=== PATIENT | female | born 1945 | race African-American/Black ===

== ENCOUNTER 2022-09-20 20:55 | Inpatient (IN) | payer MEDICARE, OTHER ==
[~2022-09-20] VITALS: Ht 157.5 cm; Wt 62.6 kg
[2022-09-20] MEDS ORDERED: IBUP-1953 PO (22:31)
[2022-09-20] MEDS ORDERED: RISP0.5T5 PO (22:32)
[2022-09-20] MEDS ORDERED: TEMAZEPAM 7.5 MG CAPSULE PO PRN (23:00)
[2022-09-20] MEDS ORDERED: ACETAMINOPHEN 325 MG TABLET PO PRN (23:00)
[2022-09-20] MEDS ORDERED: MAGNESIUM HYDROXIDE 30 ML UDC PO PRN (23:00)
[2022-09-20] MEDS ORDERED: BLOOD SUGAR DIAGNOSTIC 1 EACH STRIP IN ONE (23:00)
[2022-09-20] MEDS ORDERED: MAG HYDROX/AL HYDROX/SIMETH 30 ML UDC PO PRN (23:00)
[2022-09-20] MEDS ORDERED: clonazePAM 0.5 MG TABLET PO PRN (23:00)
[2022-09-21] MEDS: MIRTAZAPINE 15 MG TABLET PO SCH (21:02)
[2022-09-22] MEDS ORDERED: CALC355O18 PO (13:06)
[2022-09-22] MEDS ORDERED: ACET-868 PO (13:06)
[2022-09-22] MEDS ORDERED: LACT20SO4 PO (13:06)
[2022-09-22] MEDS ORDERED: MAGN400O6 GT (13:06)
[2022-09-22] MEDS ORDERED: RISP0.5T5 PO (13:06)
[2022-09-22] MEDS: risperiDONE 1 MG TABLET PO SCH (17:00)
[2022-09-22 19:40] LABS: BASOPHILS % (AUTO) 0.5 % (0.0-2.0); EOSINOPHILS # (AUTO) 0.1 K/uL (0.0-0.7); EOSINOPHILS % (AUTO) 1.6 % (0.0-6.0); HEMATOCRIT 41 % (33-45); LYMPHOCYTES # (AUTO) 2.5 K/uL (0.8-4.8); LYMPHOCYTES % (AUTO) 36.8 % (20.0-44.0); MEAN CORPUSCULAR HEMOGLOBIN 32 PG (26.0-33.0); MEAN CORPUSCULAR HGB CONC 32 g/dl (31.0-36.0); MEAN CORPUSCULAR VOLUME 99 fL (82-100); MONOCYTES # (AUTO) 0.4 K/uL (0.1-1.30); MONOCYTES % (AUTO) 5.5 % (2.0-12.0); NEUTROPHILS # (AUTO) 3.8 K/uL (1.8-8.9); NEUTROPHILS % (AUTO) 55.6 % (43.0-81.0); PLATELET COUNT (AUTO) 344 K/uL (150-450); RED BLOOD CELL COUNT(AUTO) 4.14 MIL/uL (4.0-5.2); RED CELL DISTRIBUTION WIDTH 12.8 % (11.5-15.0); WHITE BLOOD COUNT (AUTO) 6.8 K/uL (4.3-11.0)
[2022-09-22 20:09] LABS: ALANINE AMINOTRANSFERASE 18 U/L (12-78); ALBUMIN 3.7 g/dL (3.4-5.0); ALKALINE PHOSPHATASE 53 U/L (46-116); ASPARTATE AMINOTRANSFERASE 13 U/L (15-37); BILIRUBIN,TOTAL 0.4 mg/dL (0.2-1.0); CALCIUM, SERUM 9.7 mg/dL (8.5-10.1); CARBON DIOXIDE 25 mmol/L (21-32); CHLORIDE 107 mmol/L (98-107); CREATININE 0.7 mg/dL (0.6-1.3); GLUCOSE 123 mg/dL (74-106); POTASSIUM 3.9 mmol/L (3.5-5.1); SODIUM SERUM 144 mmol/L (136-145); TOTAL PROTEIN, SERUM 7.8 g/dL (6.4-8.2); UREA NITROGEN, BLOOD 7 mg/dL (7-18)
[2022-09-22 20:12] LABS: HDL CHOLESTEROL 67 mg/dL (40-60); TRIGLYCERIDES 107 mg/dL (30-150)
[2022-09-22 20:22] LABS: CHOLESTEROL 243 mg/dL (<200); LDL 154 mg/dL (0-99)
[2022-09-22 20:27] LABS: THYROID STIMULATING HORMONE 0.514 uIU/mL (0.358-3.74)
[2022-09-22] MEDS: MIRTAZAPINE 15 MG TABLET PO SCH (21:31)
[2022-09-22 21:38] VITALS: BP 110/69; TEMP 98.2; O2SAT 95
[2022-09-23] MEDS: risperiDONE 1 MG TABLET PO SCH ×3 (08:13→17:00)
[2022-09-23 20:23] VITALS: BP 106/62; TEMP 97.6; O2SAT 97
[2022-09-23] MEDS: MIRTAZAPINE 15 MG TABLET PO SCH ×2 (21:43→21:47)
[2022-09-24] MEDS: risperiDONE 1 MG TABLET PO SCH ×2 (09:00→17:00)
[2022-09-24 16:00] VITALS: BP 143/78; TEMP 98.3; O2SAT 100
[2022-09-24] MEDS: MIRTAZAPINE 15 MG TABLET PO SCH (21:45)
[2022-09-25 08:00] VITALS: BP 157/68; TEMP 97.5; TEMP 97.6; O2SAT 95
[2022-09-25] MEDS: risperiDONE 1 MG TABLET PO SCH ×2 (09:00→09:47)
[2022-09-25 16:00] VITALS: BP 134/76; TEMP 97.6; O2SAT 95; O2SAT 98
[2022-09-25 20:00] VITALS: BP 109/71; TEMP 98; O2SAT 96
[2022-09-25] MEDS: MIRTAZAPINE 15 MG TABLET PO SCH (22:00)
[2022-09-26 08:00] VITALS: BP 139/71; TEMP 98.1; O2SAT 100
[2022-09-26] MEDS: risperiDONE 1 MG TABLET PO SCH ×2 (09:00→17:00)
[2022-09-26 16:00] VITALS: BP 93/61; TEMP 98.1; O2SAT 100
[2022-09-26 20:58] VITALS: BP 109/69; TEMP 98; O2SAT 99
[2022-09-26] MEDS: MIRTAZAPINE 15 MG TABLET PO SCH (21:45)
[2022-09-27] MEDS: risperiDONE 1 MG TABLET PO SCH ×2 (08:23→16:16)
[2022-09-27] MEDS ORDERED: HALOPERIDOL LACTATE INJ 5 MG/ML VIAL IM PRN (14:00)
[2022-09-27] MEDS: MIRTAZAPINE 15 MG TABLET PO SCH (21:05)
[2022-09-28 08:00] VITALS: BP 137/93; TEMP 98.6; O2SAT 96
[2022-09-28] MEDS: risperiDONE 1 MG TABLET PO SCH (09:06)
[2022-09-28 16:00] VITALS: BP 128/72; TEMP 97.6; O2SAT 99
[2022-09-28] MEDS: HALOPERIDOL 5 MG TABLET PO SCH (19:18)
[2022-09-28 20:00] VITALS: BP 130/70; TEMP 98.2; O2SAT 99
[2022-09-28] MEDS: MIRTAZAPINE 15 MG TABLET PO SCH (21:33)
[2022-09-29 08:00] VITALS: BP 118/73; TEMP 97.4; O2SAT 98
[2022-09-29] MEDS: HALOPERIDOL 5 MG TABLET PO SCH ×2 (09:06→17:03)
[2022-09-29 16:00] VITALS: BP 129/85; TEMP 98; O2SAT 96
[2022-09-29 20:00] VITALS: BP 117/65; TEMP 97.6; O2SAT 98
[2022-09-29] MEDS: MIRTAZAPINE 15 MG TABLET PO SCH (21:27)
[2022-09-30] MEDS: HALOPERIDOL 5 MG TABLET PO SCH ×2 (09:01→17:10)
[2022-09-30 16:00] VITALS: BP 142/90; TEMP 97.8; O2SAT 98
[2022-09-30 20:44] VITALS: BP 103/69; TEMP 97.8; O2SAT 100
[2022-09-30] MEDS: MIRTAZAPINE 15 MG TABLET PO SCH (21:38)
[2022-10-01 08:00] VITALS: BP 119/57; TEMP 97.7; O2SAT 98
[2022-10-01] MEDS: HALOPERIDOL 5 MG TABLET PO SCH ×2 (09:10→16:16)
[2022-10-01] MEDS ORDERED: HALOPERIDOL DECANOATE IM 100 MG/ML AMPUL IM ONE (13:00)
[2022-10-01 16:00] VITALS: BP 123/78; TEMP 97.9; O2SAT 100
[2022-10-01 20:44] VITALS: BP 107/65; TEMP 98.4; O2SAT 97
[2022-10-01] MEDS: MIRTAZAPINE 15 MG TABLET PO SCH (21:24)
[2022-10-02 08:00] VITALS: BP 107/60; TEMP 98.4; O2SAT 96
[2022-10-02] MEDS: HALOPERIDOL 5 MG TABLET PO SCH ×2 (08:45→16:24)
[2022-10-02 16:00] VITALS: BP 129/85; TEMP 97.8; O2SAT 98
[2022-10-02] MEDS: MIRTAZAPINE 15 MG TABLET PO SCH (21:06)
[2022-10-03 08:00] VITALS: BP 109/63; TEMP 98.2; O2SAT 94
[2022-10-03] MEDS: HALOPERIDOL 5 MG TABLET PO SCH ×2 (09:04→16:43)
[2022-10-03] MEDS: MIRTAZAPINE 15 MG TABLET PO SCH (21:13)
[2022-10-04 08:00] VITALS: BP 109/73; TEMP 97.7; O2SAT 95
[2022-10-04] MEDS: HALOPERIDOL 5 MG TABLET PO SCH ×2 (08:11→16:14)
[2022-10-04 16:00] VITALS: BP 132/75; TEMP 98; O2SAT 95
[2022-10-04 20:00] VITALS: BP 126/74; TEMP 97.5; O2SAT 96
[2022-10-04] MEDS: MIRTAZAPINE 15 MG TABLET PO SCH (21:07)
[2022-10-05 08:00] VITALS: BP 124/75; TEMP 98; O2SAT 99
[2022-10-05] MEDS: HALOPERIDOL 5 MG TABLET PO SCH (08:22)
== END 2022-10-05 12:45 | disposition home or self-care (01) | DRG 885 ==
LOC: GPS 21:59
PROVIDERS: ADMIT Psychiatry & Neurology Psychiatry; ATTEND Internal Medicine
DX: F20.9 Schizophrenia, unspecified (principal); F33.2 Major depressive disorder, recurrent severe without psychotic features; F29 Unspecified psychosis not due to a substance or known physiological condition; F41.9 Anxiety disorder, unspecified; R62.7 Adult failure to thrive; Z79.899 Other long term (current) drug therapy; Z91.199 Patient's noncompliance with other medical treatment and regimen due to unspecified reason; Z20.822 Contact with and (suspected) exposure to COVID-19; Z73.6 Limitation of activities due to disability; Z68.25 Body mass index [BMI] 25.0-25.9, adult; R74.01 Elevation of levels of liver transaminase levels
CPT/HCPCS: 36415; 80053-TC; 80061-TC; 84443-TC; 85025-TC; 97116-TC; J1630; J1631